=== PATIENT | male | born 1965 | race Caucasian/White ===

== ENCOUNTER 2016-06-18 05:17 | Day surgery (SDC) | payer OTHER ==
[~2016-06-18] VITALS: Ht 170.2 cm; Wt 204.6 kg
--- NOTE | ~2016-06-18 | S ---
[facility] [place] [address] SURGICAL PATH RPT PROCEDURE Name: DARLENE MARQUES Room #: DEP [facility] M.R.#: [id number] Admission: 06/18/16 Date of : 67 Discharge: 06/18/16 Report #: [id number] Path Case #: [id number] PATHOLOGY REPORT COLLECTION DATE: 06/18/2016 RECEIVED DATE: 06/18/2016 SUBMITTING PHYS: Dr. Mehreen Alexandra OTHER PHYS: Dr. Yoko Davis SPECIMEN(S) RECEIVED: A.Right index finger mass * * * * * * * * * * * * FINAL DIAGNOSIS: Soft tissue, right index finger mass, excision: - Cystic space lined by thin lining, compatible with a digital mucous cyst. - Negative for malignancy. (IUV:csd; d/t: 06/19/2016) PATHOLOGIST: Belinda Lombardo M.D. REPORT ELECTRONICALLY SIGNED BY: Belinda Lombardo M.D. DATE/TIME: 06/19/2016 15:51 * * * * * * * * * * * * GROSS PATHOLOGY: Received in formalin labeled "Darlene Marques, right index finger mass," is a partially cystic piece of gill soft tissue measuring 0.4 x 0.4 x 0.2 cm. Sectioning reveals white-gill, partially cystic cut surfaces. The tissue is submitted entirely in cassette A1. (CAA; 06/18/2016) CLINICAL HISTORY: Carpal tunnel syndrome INITIAL CPT CODE(S): 29029 Professional services performed by [facility] at [facility] [address] [place] [address] Technical services performed by [facility] at [address] [place] [id number]. [facility] [address] [place] [address] SURGICAL PATH RPT PROCEDURE Name: DARLENE MARQUES Room #: DEP [facility] Lilibeth#: [id number] Admission: 06/18/16 Date of : 67 Discharge: 06/18/16 Report #: [id number] Path Case #: [id number] [address] PHONE: [phone] DIRECTOR: Nader Sanchez M.D. * * * END OF REPORT * * *
--- NOTE | ~2016-06-18 | O ---
[facility] [place] [address] OPERATIVE REPORT Name: DARLENE HE Room #: 150-5 [facility] M.R.#: [id number] Admission: 06/18/16 Attend Phys: Mehreen Alexandra, Discharge: Date of : 67 Report #: [id number] THIS REPORT FOR: //name// CC: Yokoerasmo Davis Mehreen Alexandra DATE OF SERVICE: 06/18/2016 PREOPERATIVE DIAGNOSES: 1. Right carpal tunnel syndrome. 2. Right index finger dorsal mass. POSTOPERATIVE DIAGNOSES: 1. Right carpal tunnel syndrome. 2. Right index finger dorsal mass. PROCEDURE PERFORMED: 1. Right open carpal tunnel release. 2. Right index finger dorsal mass excision. SURGEON: Mehreen Alexandra MD. ANESTHESIA: Local MAC anesthesia. ESTIMATED BLOOD LOSS: 1 mL. TOURNIQUET TIME: 28 minutes. COMPLICATIONS: None. CONDITION: Stable. DISPOSITION: To recovery room. SPECIMEN: Sent to pathology. INDICATIONS: The patient is a 51-year-old male with the abovementioned diagnoses. He elects for operative treatment. The risks, benefits, alternatives, and complications were discussed that include but not limited to infection, damage to blood vessels or nerves, incomplete relief of his symptoms. An informed consent was obtained. The correct extremity was identified and labeled by myself after verbal confirmation of the patient, as well as the visual confirmation, signed an informed consent. DESCRIPTION OF PROCEDURE: The patient was brought back to the operating room, placed on the operating table in supine position. He received preoperative [facility] [address] [place] [address] OPERATIVE REPORT Name: DARLENE HE Room #: 150-5 [facility] M.R.#: [id number] Admission: 06/18/16 Attend Phys: Mehreen Alexandra, Discharge: Date of : 67 Report #: [id number] antibiotics. Tourniquet was placed over padding the patient's right upper extremity. The right upper extremity was then sterilely prepped and draped in the usual fashion. A final time-out was taken to verify correct patient, operative procedure, operative site, all concurred. After adequate sedation was achieved, a total of approximately 8 mL of mixture of 0.25% Marcaine and 1% lidocaine was injected in to the subcutaneous tissues of the proposed incision site for both incisions. Both procedures were done with the aid of 3.5 times loupe magnification. First, attention was placed to the dorsum of the right index finger approximately 1 cm oblique incision was made over the borders of the that was marked in the preoperative holding area. Dissection was carried down to subcutaneous tissue with tenotomy scissors. Bleeders were coagulated. A 5 mL dorsal finger mass identified and carefully excised. It was consistent with ganglion cyst. It had a made a small rent in the dorsal extensor tendon. This was longitudinal, and the wound was thoroughly irrigated the base was cauterized with bipolar cautery, and the tendon was repaired with 4-0 Vicryl suture. The wound was thoroughly irrigated. The skin was closed with 4-0 nylon suture. Next, attention was placed to carpal tunnel. A 2.5 cm incision was made over the carpal tunnel, in line with the ring and long finger web space. Dissection was carried down the mid portion with a #15 blade through the palmar fascia and through the very thick transverse carpal ligament. The very thick transverse carpal ligament was transected proximally from the antebrachial fascia in the forearm, all the way to the fat in the palm. The incision was ulnar to the course of the median nerve to decrease postoperative scarring. This patient required an extension across the wrist crease that was done in an oblique angle in order to decrease postoperative scarring. This was done due to the significant tightness at the level of the distal wrist crease and in order to decrease risk of any injury to any neurovascular structures. The nerve was evaluated and looked to be in good condition. There was a nice return of blood flow after complete release of the transverse carpal ligament. The transverse carpal ligament was released all the way from the antebrachial fascia in the forearm, all the way to the fat in the palm. The wound was thoroughly irrigated. The skin was closed with 4-0 nylon suture. The wound was dressed with Adaptic and sterile gauze. He was placed in to bulky compressive dressing. All fingers were pink with brisk capillary refill at the conclusion of the case. After deflation of the tourniquet, all sponge and needle counts were correct. The patient transferred to the postoperative recovery room in stable condition. By: 1157 1335 Mehreen Alexandra MD /jermaine
[~2016-06-18 05:17] MED LIST: ESCITALOPRAM OX20 MG PO; FLEXERIL PO; IBUPROFEN 800800 M1 PO; LISINOPRIL-HCT1 EAC2 PO; ZOCOR20 MG PO
[2016-06-18 10:15] LABS: CREATININE 1.1 mg/dL (0.6-1.3); POTASSIUM 3.4 mmol/L (3.5-5.1)
== END 2016-06-18 16:12 | disposition home or self-care (01) ==
LOC: OR 05:17 → TBA 05:17 → OR 10:30
PROVIDERS: Orthopaedic Surgery Hand Surgery
DX: M79.89 Other specified soft tissue disorders (principal); G56.01 Carpal tunnel syndrome, right upper limb; I10 Essential (primary) hypertension; E78.00 Pure hypercholesterolemia, unspecified; F32.9 Major depressive disorder, single episode, unspecified; F41.9 Anxiety disorder, unspecified; G47.33 Obstructive sleep apnea (adult) (pediatric); Z87.891 Personal history of nicotine dependence; Z98.890 Other specified postprocedural states
CPT/HCPCS: 50010; 50101; 50386; 56526; 57006; 57091; 62110; 62900; 70005

== ENCOUNTER 2019-03-10 10:22 | Day surgery (SDC) | payer OTHER ==
[~2019-03-10] VITALS: Ht 170.2 cm; Wt 208.7 kg
[~2019-03-10 10:22] MED LIST changes: +ADVIL200 M1 PO; +CYCLOBENZAPRINE10 MG PO; +IRON325 PO; +TYLENOL325 M1 PO
[2019-03-10 11:04] LABS: CALCIUM 9.5 mg/dL (8.5-10.1); CREATININE 1.2 mg/dL (0.7-1.3); POTASSIUM 3.6 mmol/L (3.5-5.1)
[2019-03-10 12:12] VITALS: BP 152/64
--- NOTE | 2019-03-10 13:11 | EKG ---
[address] [address] ELECTROCARDIOGRAM REPORT Name: DARLENE HE Room #: 150-4 [facility]#: [id number] Admission: 03/10/19 Attend Phys: Srinivas Barlow MD Discharge: Date of : 67 Report #: [id number] THIS REPORT FOR: //name// [facility] Test Date: 2019-03-10 Test Time: 11:00:15 Pat Name: DARLENE HE Department: Room: Gender: M [employer]: filomena : 1965 Requested By: Srinivas Barlow Order Number: [id number] MD: Jani Alfaro Measurements Intervals [place] Rate: 69 P: 61 MO: 199 QRS: 42 QRSD: 102 T: 45 QT: 489 QTc: 524 Interpretive Statements Sinus rhythm Compared to ECG 04/30/2016 10:05:30 Ventricular premature complex(es) no longer present Electronically Signed On 03-10-2019 13:11:05 MACHINE ACCOUNTANT by Jani Alfaro [email or web address] <ELECTRONICALLY SIGNED> By: Jani Alfaro MD 03/10/19 1311 1100 1100 Jani Alfaro MD /ODALYS
[2019-03-10] MEDS ORDERED: PERCOCET 7.5-31 EAC1 PO (13:22)
[2019-03-10 13:57] VITALS: BP 152/64
--- NOTE | 2019-03-16 12:06 | PATH ---
[facility] [address] [place] [address] PATHOLOGY RPT PROCEDURE Name: DARLENE MARQUES Room #: DEP [facility] M.R.#: [id number] Admission: 03/10/19 Date of : 67 Discharge: 03/10/19 Report #: [id number] Path Case #: [id number] [facility] Accession Number: [id number] . 01 Material submitted: . foot - MASS LEFT FOOT. Modifiers: left . 01 Clinical history: . PAIN IN LEFT FOOT. LOCALIZED SWELLING, MASS AND LUMP LEFT LOWER LIMB . 02 Diagnosis: Mass left foot, excision: - Compatible with a ruptured mature keratinous cyst. - Negative for malignancy. (IUV:wali; 03/14/2019) QMS 03/14/2019 1149 Local . 02 Electronically signed: . Belinda Lombardo MD, Pathologist NPI- [id number] . 01 Gross description: . Received in formalin labeled "Darlene Marques, mass left foot," is a roughly spherical, wrinkled segment of pale yellow-gill possible cystic tissue measuring 1.3 x 1.3 x 1.1 cm with attached segment of wrinkled, gill-brown soft tissue measuring 2.3 x 0.8 x 0.3 cm. The specimen is inked black. Serial sectioning through the possible cystic tissue reveals a cystic interior cavity filled with white, friable cystic material that measures up to 0.9 cm on cut surface. Sectioning through the remaining tissue reveals firm, gill-brown cut surfaces. Direct Customer Service Representative sections are submitted in cassette A1. (DAC; 03/13/2019) XDC/XDC 03/14/2019 1148 Local . 02 Pathologist provided ICD-10: L72.9 . 02 CPT . 751610 Specimen Comment: A courtesy copy of this report has been sent to [phone] Specimen Comment: [id number] Specimen Comment: Report sent to and Specimen Comment: A duplicate report has been generated due to demographic updates. Performed at: [address] [place] [address] PATHOLOGY RPT PROCEDURE Name: DARLENE MARQUES Room #: DEP [facility] Lilibeth#: [id number] Admission: 03/10/19 Date of : 67 Discharge: 03/10/19 Report #: [id number] Path Case #: [id number] [address], [place], [place] [id number] MD Figueroa Alfaro MD Phone: [phone] Performed at: [address] [id number] MD Belinda Lombardo MD Phone: [phone]
--- NOTE | 2019-03-17 11:35 | O ---
[facility] [place] [address] OPERATIVE REPORT Name: FAVIOANASTASIYADARLENE Casper Room #: DEP [facility]..#: [id number] Admission: 03/10/19 Attend Phys: Srinivas Barlow MD Discharge: 03/10/19 Date of : 67 Report #: [id number] THIS REPORT FOR: //name// CC: Yoko Barlow DATE OF SERVICE: 03/10/2019 PREOPERATIVE DIAGNOSES: 1. Left great toe interphalangeal joint arthritis. 2. Left foot mass. POSTOPERATIVE DIAGNOSES: 1. Left great toe interphalangeal joint arthritis. 2. Left foot mass. PROCEDURES: 1. Left foot interphalangeal joint arthrodesis. 2. Left foot mass excision. SURGEON: Dr. Srinivas Barlow. REHAB NURSE: Karen Brandon. ANESTHESIA: MAC. ESTIMATED BLOOD LOSS: 10 mL. DRAINS: No drains. TOURNIQUET TIME: 40 minutes. COMPLICATIONS: There were no complications. DESCRIPTION OF PROCEDURE: The patient was brought to the operating room where he was placed under MAC anesthesia. The left lower extremity was prepped and draped in a sterile manner. The extremity was elevated, exsanguinated, tourniquet placed to 250 mmHg. 0.5% Marcaine local anesthetic was then placed about the first metatarsal to assist in anesthesia. Approximately 20 mL of local was placed. The dorsal incision over the great toe interphalangeal joint was made. This was dissected directly down to the joint. Cartilage was removed from the surfaces of the proximal and distal phalanges and the joint was then fenestrated with K wires to get good bleeding subchondral bone. Once this was achieved, two 4.0 cannulated screws were placed across the interphalangeal joint of the great toe from distal to proximal. Excellent fixation was achieved and excellent alignment as verified under fluoroscopy. A separate 2 cm incision [address] [address] OPERATIVE REPORT Name: DARLENE HE [facility] [id number] Admission: 03/10/19 Attend Phys: Srinivas Barlow MD Discharge: 03/10/19 Date of : 67 Report #: [id number] over the plantar mass in the first webspace was made. This was dissected down through soft tissue to the mass, which was then identified and a hemostat was utilized to remove this. Upon entering the mass, there was some purulent-appearing fluid, which was then subsequently cultured and sent for culture. The mass itself was approximately 1.5 cm in diameter. It was then completely removed bluntly with the hemostat. The wounds were both irrigated copiously and closed with celestina for the skin dorsally and 2-0 nylon for the skin plantarward. The wounds were dressed with Xeroform, 4 x 4s, and a sterile soft compressive dressing was placed. Tourniquet was let down approximately 40 minutes. Toes were pink and warm with good capillary refill. There were no complications from the procedure. The patient tolerated the procedure well and went to the recovery room without incident. <ELECTRONICALLY SIGNED> By: Srinivas Barlow MD 03/17/19 1135 1330 1511 Srinivas Barlow MD /nt
== END 2019-03-10 14:20 | disposition home or self-care (01) ==
LOC: OR 10:22 → TBA 12:09 → OR 12:30
PROVIDERS: Orthopaedic Surgery Foot and Ankle Surgery
DX: M13.872 Other specified arthritis, left ankle and foot (principal); L72.9 Follicular cyst of the skin and subcutaneous tissue, unspecified; R22.42 Localized swelling, mass and lump, left lower limb; I10 Essential (primary) hypertension; F32.9 Major depressive disorder, single episode, unspecified; F41.9 Anxiety disorder, unspecified; G47.30 Sleep apnea, unspecified; E78.00 Pure hypercholesterolemia, unspecified; E78.5 Hyperlipidemia, unspecified; Z98.890 Other specified postprocedural states; Z79.899 Other long term (current) drug therapy; Z87.891 Personal history of nicotine dependence
CPT/HCPCS: 50010; 50101; 50386; 51122; 56524; 57091; 62110; 62850; 70005